=== PATIENT | male | born 1945 | race Caucasian/White ===

== ENCOUNTER 2023-08-02 09:58 | Observation (INO) ==
[2023-08-02 10:47] LABS: Hematocrit 29.5 % (38-53); Hemoglobin 9.7 g/dL (13.2-16.3); Mean Corpuscular Hemoglobin 23.6 pg (27-33); Mean Corpuscular Hgb Conc 32.9 g/dL (31-36); Mean Corpuscular Volume 71.8 fL (80-97); Mean Platelet Volume 7.2 fL (7.5-11.2); Platelet Count 214 10^3/uL (150-450); Red Blood Count 4.11 10^6/uL (4.06-5.63); Red Cell Distribution Width 19.9 % (12-17); White Blood Count 5.8 10^3/uL (3.6-10.2)
[2023-08-02 10:49] LABS: Albumin 3.8 g/dL (3.2-5.2); Albumin/Globulin Ratio 1.4 (1-3); Calcium 8.6 mg/dL (8.6-10.3); Creatinine, Serum 0.93 mg/dL (0.67-1.17); Globulin 2.7 g/dL (2-4); INR 1.1 (0.83-1.13); Potassium 3.7 mmol/L (3.5-5.0); Total Bilirubin 0.5 mg/dL (0.2-1.0); Total Protein 6.5 g/dL (6.4-8.9); eGFR CKD-EPI 84.6 (>60)
[2023-08-02 11:15] LABS: ABS Eosinophils 0.1 10^3/uL (0.0-0.5); ABS Lymphocytes 0.8 10^3/uL (1.0-4.8); ABS Monocytes 0.2 10^3/uL (0.0-1.1); ABS Neutrophils 4.7 10^3/uL (1.5-7.6); ABS Nucleated RBC 0.01 10^3/ul; Anisocytosis 1+; Eosinophil % 0.9 %; Hypochromasia 1+; Lymphocyte % 13.7 %; Microcytosis 2+; Nucleated Red Blood Cells % 0.1 %/100WBC (0.0-0.8)
[2023-08-02 11:21] LABS: Rapid COVID-19 Molecular Undetected (Undetected)
[2023-08-02 11:39] LABS: Influenza A Molecular Negative (Negative); Influenza B Molecular Negative (Negative)
[2023-08-02 11:48] LABS: High Sensitivity Troponin 1 Hr 6 pg/mL (<20)
[2023-08-02 15:03] LABS: Magnesium 1.9 mg/dL (1.9-2.7)
[2023-08-02] MEDS: Enoxaparin 40 MG/0.4 ML SYR SUBCUT SCH (16:43)
[2023-08-02 17:19] LABS: Ferritin 2.4 ng/mL (24-336)
[2023-08-02 17:23] LABS: Folate 9.87 ng/mL (5.90-24.80)
[2023-08-02] MEDS: Polyethylene Glycol 3350 17 GM PACKET PO SCH (21:50)
[2023-08-02] MEDS: Ferric Gluconate IV 250 MG in NS 0.9% 250 ml 200 ML IVPB SCH (21:50)
[2023-08-03 06:42] LABS: Calcium 8.3 mg/dL (8.6-10.3); Creatinine, Serum 0.9 mg/dL (0.67-1.17); Magnesium 1.9 mg/dL (1.9-2.7); Phosphorus 2.8 mg/dL (2.5-5.0); Potassium 3.9 mmol/L (3.5-5.0)
[2023-08-03 07:05] LABS: ABS Basophils 0.1 10^3/uL (0.0-0.1); ABS Eosinophils 0.1 10^3/uL (0.0-0.5); ABS Lymphocytes 1.1 10^3/uL (1.0-4.8); ABS Monocytes 0.3 10^3/uL (0.0-1.1); ABS Neutrophils 2.8 10^3/uL (1.5-7.6); Eosinophil % 2.9 %; Hematocrit 28.2 % (38-53); Hemoglobin 9.2 g/dL (13.2-16.3); Lymphocyte % 25.8 %; Mean Corpuscular Hemoglobin 23.5 pg (27-33); Mean Corpuscular Hgb Conc 32.7 g/dL (31-36); Mean Corpuscular Volume 71.8 fL (80-97); Mean Platelet Volume 7.2 fL (7.5-11.2); Nucleated Red Blood Cells % 0.1 %/100WBC (0.0-0.8); Platelet Count 200 10^3/uL (150-450); Red Blood Count 3.93 10^6/uL (4.06-5.63); Red Cell Distribution Width 19.9 % (12-17); White Blood Count 4.4 10^3/uL (3.6-10.2)
[2023-08-03] MEDS: Polyethylene Glycol 3350 17 GM PACKET PO SCH ×2 (09:01→20:30)
[2023-08-03] MEDS: Ferric Gluconate IV 250 MG in NS 0.9% 250 ml 200 ML IVPB SCH (09:01)
[2023-08-03] MEDS: Aspirin EC 81 mg TAB.EC (enteric coated) PO SCH (09:01)
[2023-08-03] MEDS ORDERED: Magnesium Hydroxide LIQ 30 ML UDC PO PRN (12:10)
[2023-08-03] MEDS ORDERED: Senna TAB 8.6 mg TAB PO PRN (12:10)
[2023-08-03] MEDS: Enoxaparin 40 MG/0.4 ML SYR SUBCUT SCH (17:21)
[2023-08-04 06:48] LABS: ABS Eosinophils 0.1 10^3/uL (0.0-0.5); ABS Monocytes 0.4 10^3/uL (0.0-1.1); ABS Neutrophils 3.2 10^3/uL (1.5-7.6); Eosinophil % 2.7 %; Hematocrit 29.9 % (38-53); Hemoglobin 9.9 g/dL (13.2-16.3); Lymphocyte % 20.3 %; Mean Corpuscular Hemoglobin 23.6 pg (27-33); Mean Corpuscular Hgb Conc 33.1 g/dL (31-36); Mean Corpuscular Volume 71.5 fL (80-97); Mean Platelet Volume 7.5 fL (7.5-11.2); Nucleated Red Blood Cells % 0.1 %/100WBC (0.0-0.8); Platelet Count 216 10^3/uL (150-450); Red Blood Count 4.19 10^6/uL (4.06-5.63); Red Cell Distribution Width 19.7 % (12-17); White Blood Count 4.7 10^3/uL (3.6-10.2)
[2023-08-04] MEDS: Aspirin EC 81 mg TAB.EC (enteric coated) PO SCH (08:43)
[2023-08-04] MEDS: Polyethylene Glycol 3350 17 GM PACKET PO SCH (08:43)
[2023-08-04] MEDS: Ferric Gluconate IV 250 MG in NS 0.9% 250 ml 200 ML IVPB SCH (08:45)
[2023-08-04 09:54] VITALS: BP 113/76
== END 2023-08-04 10:25 | disposition home or self-care (01) ==
LOC: EDHOLD 09:58 → ED 09:58 → MEDTELE 14:44
PROVIDERS: ADMIT Student in an Organized Health Care Education/Training Program; ATTEND Internal Medicine